=== PATIENT | male | born 1945 | race African-American/Black ===

== ENCOUNTER 2023-04-15 11:15 | Outpatient (RCR) | payer MEDICAID, OTHER | END 2023-04-20 | disposition home or self-care (01) | LOC: WSC | DX: M21.6X2 Other acquired deformities of left foot (principal) ==

== ENCOUNTER 2023-05-15 13:30 | Outpatient (RCR) | payer OTHER, MEDICAID | END 2023-05-21 | disposition home or self-care (01) | LOC: WSPT | DX: M21.6X2 Other acquired deformities of left foot (principal) ==